=== PATIENT | male | born 1965 | race Two or more races ===

== ENCOUNTER 2021-01-31 05:45 | Day surgery (SDC) | payer OTHER ==
[~2021-01-31 05:45] MED LIST: CELEBREX200MG PO; HORIZANT600 MG PO; ULTRACE PO; ZANAFLEX4 MG PO
== END 2021-01-31 10:30 | disposition home or self-care (01) ==
LOC: CIR.AMB 05:45
PROVIDERS: ATTEND Orthopaedic Surgery Hand Surgery
DX: M25.831 Other specified joint disorders, right wrist (principal)